=== PATIENT | female | born 1970 | race Caucasian/White ===

== ENCOUNTER 2020-08-08 06:24 | Emergency (ER) | payer MEDICAID ==
[2020-08-08] MEDS ORDERED: TORAdol 30 mg Injection IM ONE (06:42)
[2020-08-08] MEDS ORDERED: TORAdol 30 mg Injection ONE (06:43)
--- NOTE | 2020-08-08 06:51 | ERPHSYRPT ---
- History of Present Illness Historian: patient Exam Limitations: other (Poor historian) Patient Subjective Stated Complaint: pt states "I moved my leg up to my stomach and got a sharp pain." Triage Nursing Assessment: pt came into the er via wheelchair; pt is axo x4; pt is thrashing around, crying, screaming, cussing, hateful to staff; c/o pain to rt flank and rt abd pain; pt states 7/10 to rt flank area that radiates to rt lower abd; pt states sudden onset; tenderness to rt flank with palpations; pt denies N/V/D; abd is soft, active bowel sounds in all quads; vital wnl Timing/Duration: other (40 min) Activities at Onset: rest Quality: sharpness Abdominal Pain Onset Location: other (R CVA) Pain Radiation: no radiation Severity of Pain-Max: severe Severity of Pain-Current: severe Modifying Factors: Improves With: nothing Associated Symptoms: diaphoresis, nausea, No back, No chest pain, No diarrhea, No fever/chills, No fatigue, No headache, No heartburn, No loss of appetite, No neck pain, No rash, No shortness of breath, No syncope, No vomiting, No weakness Previous symptoms: other (W UTI/Kidney stones) Hx Tetanus, Diphtheria Vaccination/Date Given: No Hx Influenza Vaccination/Date Given: No Hx Pneumococcal Vaccination/Date Given: No <THANIA YIN - Last Filed: 08/08/20 06:43> <BONNIE HERRERA - Last Filed: 08/08/20 10:32> - History of Present Illness Time Seen by Provider: 08/08/20 07:10 Physician History: 49 yo wf w R CVA pain x40min which is 7/10. She complains of urinary frequency/urgency/nausea wo dysuria/hematuria/fever/abdominal pain. Chest pain/shortness of breath also denied. (THANIA YIN) Allergies/Adverse Reactions: No Known Drug Allergies Allergy (Unverified 08/08/20 06:27) Travel Risk - International Travel Have you traveled outside of the country in past 3 weeks: No - Coronavirus Screening Are you exhibiting any of the following symptoms?: No Close contact with a COVID-19 positive Pt in past 14-21 Days: No - Vaccine Status Have you recieved a Covid-19 vaccination: Yes Nut Chopper: Unknown - Vaccination Dates Dates if Unknown: UNKNOWN <THANIA YIN Filed: 08/08/20 06:43> - Review of Systems Constitutional: No Symptoms Eyes: No Symptoms Ears, Nose, & Throat: No Symptoms Respiratory: No Symptoms Cardiac: No Symptoms Abdominal/Gastrointestinal: No Symptoms, Nausea Genitourinary Symptoms: No Symptoms, Frequency, Urgency Musculoskeletal: No Symptoms Skin: No Symptoms Neurological: No Symptoms Psychological: No Symptoms Endocrine: No Symptoms Hematologic/Lymphatic: No Symptoms Immunological/Allergic: No Symptoms <THANIA YIN Filed: 08/08/20 06:43> - Past Medical History Pertinent Past Medical History: No - Past Surgical History Past Surgical History: No - Social History Smoking Status: Current every day smoker Exposure to second hand smoke: Yes Drug Use: none Patient Lives Alone: No Significant Family History: no pertinent family hx - Female History Hx Now: No <THANIA YIN Filed: 08/08/20 06:43> - Physical Exam General Appearance: no apparent distress (Pt w buttocks in air screaming about her pain) Eye Exam: PERRL/EOMI, eyes nml inspection Ears, Nose, Throat Exam: normal ENT inspection, TMs normal, pharynx normal, moist mucous membranes Neck Exam: normal inspection, non-tender, supple, full range of motion, No meningismus, No mass, No Brudzinski, No Kernig's, No carotid bruit Respiratory Exam: normal breath sounds, lungs clear, airway intact, No chest tenderness, No respiratory distress Cardiovascular Exam: regular rate/rhythm, normal heart sounds, normal peripheral pulses, No murmur Gastrointestinal/Abdomen Exam: soft, normal bowel sounds, No tenderness, No distention Back Exam: CVA tenderness (R), No normal range of motion, No vertebral tenderness Extremity Exam: normal inspection, normal range of motion Neurologic Exam: alert, oriented x 3, 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, sensation nml, No motor deficits Skin Exam: normal color, warm, dry Lymphatic Exam: No adenopathy SpO2 Interpretation: normal SpO2: 100 O2 Delivery: Room Air <THANIA YIN Filed: 08/08/20 06:43> - Nursing Vital Signs Nursing Vital Signs: Initial Vital Signs Temperature 95.8 F 08/08/20 06:27 Pulse Rate 86 08/08/20 06:27 Respiratory Rate 26 H 08/08/20 06:27 Blood Pressure 132/88 08/08/20 06:27 O2 Sat by Pulse Oximetry 100 08/08/20 06:27 Pain Scale Pain Intensity [Right Dorsal 7 Back] Pain Intensity 4 - Course Nursing assessment & vital signs reviewed: Yes <THANIA YIN - Last Filed: 08/08/20 06:43> Ordered Tests: Active Orders 24 hr Category Date Time Status ABDOMEN AND PELVIS W/0 CONTRAS [CT] Stat Exams 08/08/20 06:58 Completed CBC W DIFF Stat Lab 08/08/20 08:55 Completed CMP Stat Lab 08/08/20 08:55 Completed UA W/RFX UR CULTURE Stat Lab 08/08/20 08:55 Completed Urine Triage Profile Stat Lab 08/08/20 08:55 Completed Medication Summary Discontinued Medications Generic Name Dose Route Start Last Admin Trade Name Freq PRN Reason Stop Dose Admin Ketorolac Tromethamine 60 mg 08/08/20 06:42 08/08/20 06:44 Toradol 30 Mg Injection IM 08/08/20 06:43 60 mg STAT ONE Administration Ketorolac Tromethamine Confirm 08/08/20 06:43 Toradol 30 Mg Injection Administered 08/08/20 06:44 Dose 60 mg .ROUTE .STK-MED ONE Lab/Rad Data: Laboratory Result Diagrams 08/08/20 08:55 08/08/20 08:55 Laboratory Results 08/08/20 08/08/20 08/08/20 Range/Units 08:55 08:55 08:55 WBC 11.0 H (4.0-10.5) K/mm3 RBC 4.49 (4.1-5.4) M/mm3 Hgb 13.0 (12.0-16.0) gm/dl Hct 40.2 (35-47) % MCV 89.5 (78-100) fl MCH 29.0 (26-32) pg MCHC 32.3 (32-36) g/dl RDW 13.5 (11.5-14.0) % Plt Count 261 (150-450) K/mm3 MPV 10.2 (7.5-11.0) fl Gran % 80.1 H (36.0-66.0) % Eos # (Auto) 0.08 (0-0.5) Absolute Lymphs (auto) 1.64 (1.0-4.6) Absolute Monos (auto) 0.45 (0.0-1.3) Lymphocytes % 14.9 L (24.0-44.0) % Monocytes % 4.1 (0.0-12.0) % Eosinophils % 0.7 (0.00-5.0) % Basophils % 0.2 (0.0-0.4) % Absolute Granulocytes 8.84 H (1.4-6.9) Basophils # 0.02 (0-0.4) Sodium 139 (137-145) mmol/L Potassium 3.9 (3.5-5.1) mmol/L Chloride 105 (98-107) mmol/L Carbon Dioxide 25 (22-30) mmol/L Anion Gap 13.2 (5-15) MEQ/L BUN 13 (7-17) mg/dL Creatinine 0.88 (0.52-1.04) mg/dL Estimated GFR > 60.0 ML/MIN Glucose 119 H (74-106) mg/dL Calcium 9.5 (8.4-10.2) mg/dL Total Bilirubin 0.50 (0.2-1.3) mg/dL AST 28 (14-36) U/L ALT 23 (0-35) U/L Alkaline Phosphatase 123 (38-126) U/L Serum Total Protein 7.7 (6.3-8.2) g/dL Albumin 4.7 (3.5-5.0) g/dL Urine Color (YELLOW) Urine Appearance (CLEAR) Urine pH (5-6) Ur Specific [place] (1.005-1.025) Urine Protein (Negative) Urine Ketones (NEGATIVE) Urine Blood (0-5) Dennis/ul Urine Nitrite (NEGATIVE) Urine Bilirubin (NEGATIVE) Urine Urobilinogen (0-1) mg/dL Ur Leukocyte Esterase (NEGATIVE) Urine WBC (Auto) (0-5) /HPF Urine RBC (Auto) (0-2) /HPF U Hyaline Cast (Auto) (0-2) /LPF U Epithel Cells (Auto) (FEW) /HPF Urine Bacteria (Auto) (NEGATIVE) /HPF Urine Mucus (Auto) (NEGATIVE) /HPF Urine Culture Reflexed (NO) Urine Glucose (NEGATIVE) mg/dL Urine Opiates Level NEGATIVE (NEGATIVE) Ur Methadone NEGATIVE (NEGATIVE) Urine Barbiturates NEGATIVE (NEGATIVE) Ur Phencyclidine (PCP) NEGATIVE (NEGATIVE) Urine Amphetamine POSITIVE (NEGATIVE) U Benzodiazepine Level NEGATIVE (NEGATIVE) Urine Cocaine NEGATIVE (NEGATIVE) Urine Marijuana (THC) POSITIVE (NEGATIVE) 08/08/20 Range/Units 08:55 WBC (4.0-10.5) K/mm3 RBC (4.1-5.4) M/mm3 Hgb (12.0-16.0) gm/dl Hct (35-47) % MCV (78-100) fl MCH (26-32) pg MCHC (32-36) g/dl RDW (11.5-14.0) % Plt Count (150-450) K/mm3 MPV (7.5-11.0) fl Gran % (36.0-66.0) % Eos # (Auto) (0-0.5) Absolute Lymphs (auto) (1.0-4.6) Absolute Monos (auto) (0.0-1.3) Lymphocytes % (24.0-44.0) % Monocytes % (0.0-12.0) % Eosinophils % (0.00-5.0) % Basophils % (0.0-0.4) % Absolute Granulocytes (1.4-6.9) Basophils # (0-0.4) Sodium (137-145) mmol/L Potassium (3.5-5.1) mmol/L Chloride (98-107) mmol/L Carbon Dioxide (22-30) mmol/L Anion Gap (5-15) MEQ/L BUN (7-17) mg/dL Creatinine (0.52-1.04) mg/dL Estimated GFR ML/MIN Glucose (74-106) mg/dL Calcium (8.4-10.2) mg/dL Total Bilirubin (0.2-1.3) mg/dL AST (14-36) U/L ALT (0-35) U/L Alkaline Phosphatase (38-126) U/L Serum Total Protein (6.3-8.2) g/dL Albumin (3.5-5.0) g/dL Urine Color YELLOW (YELLOW) Urine Appearance SLIGHTLY CLOUDY (CLEAR) Urine pH 7.0 (5-6) Ur Specific [place] 1.018 (1.005-1.025) Urine Protein NEGATIVE (Negative) Urine Ketones TRACE (NEGATIVE) Urine Blood MODERATE (0-5) Dennis/ul Urine Nitrite NEGATIVE (NEGATIVE) Urine Bilirubin NEGATIVE (NEGATIVE) Urine Urobilinogen NEGATIVE (0-1) mg/dL Ur Leukocyte Esterase NEGATIVE (NEGATIVE) Urine WBC (Auto) 3-5 (0-5) /HPF Urine RBC (Auto) >101 (0-2) /HPF U Hyaline Cast (Auto) 0-2 (0-2) /LPF U Epithel Cells (Auto) RARE (FEW) /HPF Urine Bacteria (Auto) FEW (NEGATIVE) /HPF Urine Mucus (Auto) SLIGHT (NEGATIVE) /HPF Urine Culture Reflexed NO (NO) Urine Glucose NEGATIVE (NEGATIVE) mg/dL Urine Opiates Level (NEGATIVE) Ur Methadone (NEGATIVE) Urine Barbiturates (NEGATIVE) Ur Phencyclidine (PCP) (NEGATIVE) Urine Amphetamine (NEGATIVE) U Benzodiazepine Level (NEGATIVE) Urine Cocaine (NEGATIVE) Urine Marijuana (THC) (NEGATIVE) <THANIA YIN - Last Filed: 08/08/20 06:43> - Progress Progress: improved Discussed with : 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 Herrera at approximately 7 AM. Patient received Toradol IM. Pain improving. Awaiting CAT scan results. Patient is resting comfortably at this time. 08/08/20 10:30 Patient reassessed. Patient's pain continues to improve. Work-up reveals a 5 mm distal ureteral lithiasis. No UTI. BUN/creatinine normal. Given the size of the stone there is a 90% chance that it will pass spontaneously. We forwarded a prescription for Toradol and Flomax to patient's pharmacy. I spoke to Dr. Harris nurse practitioner who will see patient on an outpatient basis. We will arrange for patient to have a copy of her CT scan. Patient will call the office today to schedule an appointment with Dr. Harris. Patient voices no other complaints or concerns at this time. (BONNIE HERRERA) <THANIA YIN - Last Filed: 08/08/20 06:43> - Departure Departure Disposition: Home Critical Care Time: No <BONNIE HERRERA - Last Filed: 08/08/20 10:32> - Departure Clinical Impression: Renal colic on right side, Ureterolithiasis, Hydroureter, Hydronephrosis, Amphetamine abuse, Marijuana use Condition: Stable Referrals: DOCTOR,NO FAMILY [Primary Care Provider] - LATRICE HARRIS [COURTESY STAFF] - Additional Instructions: Discharge/Care Plan ALTAGRACIA MCCOY was seen on 08/08/20 in the Emergency Room. The patient was counseled regarding Diagnosis,Lab results, Imaging studies, need for follow up and when to return to the Emergency Room. Prescriptions given: Discharge Note I have spoken with the patient and/or caregivers. I have explained the patient's condition, diagnosis and treatment plan based on the information available to me at this time. I have answered the patient's and/or caregiver's questions and addressed any concerns. The patient and/or caregivers have as good understanding of the patient's diagnosis, condition and treatment plan as can be expected at this point. The vital signs have been stable. The patient's condition is stable and appropriate for discharge from the emergency department. The patient will pursue further outpatient evaluation with the primary care physician or other designated or consulting physician as outlined in the discharge instructions. The patient and/or caregivers are agreeable to this plan of care and follow-up instructions have been explained in detail. The patient and/or caregivers have received these instruction. The patient/and or caregivers are aware that any significant change in condition or worsening of symptoms should prompt an immediate return to this or the closest emergency department or call 911. Prescriptions: Tamsulosin HCl 0.4 mg [Flomax 0.4 MG] 0.4 mg PO DAILY 14 Days #14 cap Ketorolac Tromethamine [Toradol] 10 mg PO TID 5 Days #15 tablet
--- NOTE | 2020-08-08 08:37 | XRAY ---
Indication: Right abdomen/flank pain. Multiple contiguous axial images obtained through the abdomen and pelvis without contrast. Comparison: None Lung bases are clear. Heart is not enlarged. Small hiatal hernia. Noncontrasted stomach and bowel loops appear nonobstructed. Normal appendix. No free fluid/air. 4-5 mm right UPJ calculus with mild hydronephrosis and hydroureter. No perinephric fluid. Remaining liver, gallbladder, pancreas, spleen, adrenal glands, left kidney, left ureter, urinary bladder, and uterus appear unremarkable for noncontrast exam. Mild aortic calcifications without AAA. Osseous structures intact with minimal degenerative changes throughout the spine. Impression: 1. 4-5 mm right UPJ calculus producing obstructive uropathy. 2. Incidental small hiatal hernia.
[2020-08-08 08:59] LABS: Absolute Neutrophil Ct (ANC) 8.84 (1.4-6.9); BASOPHIL % 0.2 % (0.0-0.4); Basophil (Absolute #) 0.02 (0-0.4); Eosinophil % 0.7 % (0.00-5.0); Eosinophil (Absolute #) 0.08 (0-0.5); Hematocrit 40.2 % (35-47); Lymphocyte (Absolute #) 1.64 (1.0-4.6); Lymphocytes % 14.9 % (24.0-44.0); Mean Cell Volume 89.5 fl (78-100); Mean Corpuscular Hgb Concent. 32.3 g/dl (32-36); Mean Platelet Volume 10.2 fl (7.5-11.0); Monocyte (Absolute #) 0.45 (0.0-1.3); Monocytes % 4.1 % (0.0-12.0); Neutrophil % 80.1 % (36.0-66.0); Platelet Count 261 K/mm3 (150-450); Red Blood Count 4.49 M/mm3 (4.1-5.4); Red Cell Distribution Width 13.5 % (11.5-14.0)
[2020-08-08 09:09] LABS: ALBUMIN 4.7 g/dL (3.5-5.0); ALKALINE PHOSPHATASE 123 U/L (38-126); ANION GAP 13.2 MEQ/L (5-15); BLOOD UREA NITROGEN 13 mg/dL (7-17); CHLORIDE 105 mmol/L (98-107); Calcium 9.5 mg/dL (8.4-10.2); Carbon Dioxide 25 mmol/L (22-30); Creatinine 1 0.88 mg/dL (0.52-1.04); EST GLOMERULAR FILTRATION RATE > 60.0 ML/MIN; Glucose 119 mg/dL (74-106); Potassium 3.9 mmol/L (3.5-5.1); SGOT/AST 28 U/L (14-36); SGPT/ALT 23 U/L (0-35); SODIUM 139 mmol/L (137-145); Total Protein 7.7 g/dL (6.3-8.2)
[2020-08-08 09:10] LABS: Appearance SLIGHTLY CLOUDY (CLEAR); Bilirubin NEGATIVE (NEGATIVE); Blood MODERATE Ery/ul (0-5); Glucose NEGATIVE (NEGATIVE); Hyaline Casts 0-2 /LPF (0-2); Ketones TRACE (NEGATIVE); Leukocyte Esterase NEGATIVE (NEGATIVE); Mucus SLIGHT /HPF (NEGATIVE); Nitrite NEGATIVE (NEGATIVE); Protein,Urine Dip NEGATIVE (Negative); RBC >101 /HPF (0-2); Specific Gravity 1.018 (1.005-1.025); Urobilinogen NEGATIVE mg/dL (0-1)
[2020-08-08 09:11] LABS: Bacteria FEW /HPF (NEGATIVE); Epithelial Cells RARE /HPF (FEW)
[2020-08-08 09:16] LABS: Barbiturate,Urine NEGATIVE (NEGATIVE); Benzodiazepine,Urine NEGATIVE (NEGATIVE); Cocaine,Urine NEGATIVE (NEGATIVE); Methadone,Urine NEGATIVE (NEGATIVE); Opiate,Urine NEGATIVE (NEGATIVE); PCP,Urine NEGATIVE (NEGATIVE); THC,Urine POSITIVE (NEGATIVE)
[2020-08-08 10:11] VITALS: O2SAT 98
[2020-08-08 10:23] LABS: Amphetamine,Urine POSITIVE (NEGATIVE)
[2020-08-08 10:41] VITALS: BP 148/52; PULSE 68
== END 2020-08-08 11:02 | disposition home or self-care (01) ==
LOC: ED 06:24
DX: N13.9 Obstructive and reflux uropathy, unspecified (principal); K44.9 Diaphragmatic hernia without obstruction or gangrene
CPT/HCPCS: 36415; 74176; 80053; 80307; 81001; 85025; 96372; 99284; J1885